=== PATIENT | female | born 1990 | race Caucasian/White ===

== ENCOUNTER 2016-09-25 14:00 | Emergency (ER) | payer SELFPAY ==
[2016-09-25 16:22] VITALS: BP 142/68; PULSE 78; TEMP 98.4; BMI 34.1
--- NOTE | 2016-09-25 16:30 | EDPRACDOC ---
- General Information Stated Complaint: COUGH, TOOTHACHE Time Seen by Provider: 09/25/16 16:23 Information Source: Patient Mode Of Arrival: Car Home Medications: Home Medications Insulin NPH (Isophane, Human) [Humulin N, Novolin N] 5 units SQ DAILY@1700 #1 pen 02/08/14 Insulin NPH (Isophane, Human) [Humulin N, Novolin N] 12 units SQ DAILY@0700 #1 pen 02/08/14 Insulin, Regular [Humulin R] 5 units SQ 1700 #1 vial 02/08/14 Insulin, Regular [Humulin R] 6 units SQ 0700 #1 vial 02/08/14 Hydrocodone/Acetaminophen [Vicodin 5-300 mg Tablet] 1 - 2 tabs PO Q6H PRN #10 tablet 03/18/14 Penicillin V Potassium 500 mg PO QID #40 tablet 03/18/14 Ciprofloxacin HCl [Cipro] 500 mg PO BID #20 tab 11/19/15 Amoxicillin 500 mg PO BID #20 capsule 09/25/16 Oxycodone Immediate Release [Oxycodone Immediate Release (OxyIR)] 5 mg PO Q6H PRN #15 tab 09/25/16 Prednisone [Sterapred Ds] 10 mg PO DIR #21 pack 09/25/16 Allergies/Adverse Reactions: Allergies Allergy/AdvReac Type Severity Reaction Status Date / Time No Known Allergies Allergy Verified 11/19/15 09:08 - History of Present Illness Symptoms Started: 3 DAYS HPI: PT C/O COUGH NAD LEFT UPPER TOOTHACHE FOR 3 DAYS. SPUTUM BROWN Symptoms: Reports: Cough, Other (TOOTHACHE LEFT UPPER) Recent Medications: Reports: None Relevant History Of: Reports: None Shortness of Breath: None Cough Frequency: Intermittent Cough Description: Reports: Productive, Congested Rhinorrhea: Reports: Clear Ear Symptoms: Reports: None Associated Signs and Symptoms: Reports: Cough, Other (TOOTHACHE) ED Past Medical History - History Reviewed Yes Nurses notes reviewed and agree except as marked Travel Outside of [place] in the Last 3 Months?: No - Patient Medical History Systemic History: Reports: Diabetes (GESTATIONAL). Denies: Cancer - Family Medical History Reports: Hypertension (Paternal & Maternal), Diabetes (Paternal & Maternal), Cancer (Paternal & Maternal), Stroke (Paternal & Maternal), Cardiac Disorders ( Paternal & Maternal) - Social Medical History Smoking Status: Heavy tobacco smoker (5 or more cigarettes/day or daily pipe/ cigar) ETOH: None Substance Abuse: None Lives With: Other Lives In: Home EDM Review of Systems - Review of Systems ROS Negative Except as Marked: Yes All systems reviewed and were negative except as marked Constitutional: No Symptoms Reported. negative: Fever, Chills, Weakness, Fatigue, Loss of Appetite Eyes: No Symptoms Reported. negative: Redness, Blurred Vision, Double Vision, Discharge, Pain, Light Sensitive, Photophobia Ears: No Symptoms Reported. negative: Pain, Hearing Loss, Drainage, Ear Pulling Throat: No Symptoms Reported. negative: Pain, Swelling Nose: No Symptoms Reported. negative: Congestion, Bleeding, Discharge, Injection, Swelling, Deformity, Ecchymosis, Tender, Abrasion, Laceration Mouth: Tooth Pain. negative: Pain, Drooling Respiratory: Cough, Sputum (BROWN). negative: Barky Cough, Brassy Cough, Hemoptysis, Shortness of Breath, Wheezing Cardiovascular: No Symptoms Reported. negative: Chest Pain, Palpitations, Syncope, Edema, Orthopnea, PND, Skin Mottling, Cyanosis Gastrointestinal: No Symptoms Reported. negative: Pain, Constipation, Nausea, Vomiting, Diarrhea, Melena, Formula Intolerance Genitourinary: No Symptoms Reported. negative: Dysuria, Hematuria, Frequency, Discharge, Bleeding, Testicular Pain, Neurological: No Symptoms Reported. negative: Headache, Dizziness, Seizure, Numbness, Weakness, Speech Difficulty, Gait Difficulty Musculoskeletal: No Symptoms Reported. negative: Neck, Chestwall, Ribs, Back, Shoulder, Arm, Elbow, Forearm, Wrist, Hand, Pelvis, Hip, Femur, Knee, Leg, Ankle , Foot Integumentary: No Symptoms Reported. negative: Itching, Rash, Bruising, Wound Allergic/Immunologic: No Symptoms Reported. negative: Hives, Itching Hematologic: No Symptoms Reported. negative: Lymphadenopathy, Easy Bruising, Easy Bleeding Endocrine: No Symptoms Reported. negative: Weight Gain, Weight Loss Psychiatric: No Symptoms Reported. negative: Anxiety, Depression, Hallucinations, Insomnia, Suicidal - Physical Exam Constitutional: No apparent distress, Alert (Awake) Oriented to: Time, Person, Place Last recorded Vital Signs: Last Vital Signs Temp 98.4 F 09/25/16 16:19 Pulse 78 09/25/16 16:19 Resp 20 09/25/16 16:19 BP 142/68 09/25/16 16:19 Pulse Ox 98 09/25/16 16:19 Oxygen Pulse Oxygen Saturation 98 O2 Device Oxygen Flow Rate Fraction of Inspired Oxygen ( FIO2) - HEENT Head: Normal ( normocephalic) Eye Exam: Normal (PERRL, EOMI, Sclera white) Oropharynx: Normal (Pharynx:Moist without exudate,Gums-no swelling) Tympanic Membrane: Normal ENT EAC: Normal TMJ: Normal Nose: No Symptoms Reported (septum midline) Neck: Normal (FROM, trachea at midline) - Respiratory/Cardiovascular Respiratory: Wheezes (MILD LEFT) Cardiovascular: Normal (RRR without murmur, gallop or rub) - GI Auscultation: Normal (NABS) Palpation: Normal (Soft,No rebound or guarding, non distended) Tenderness: Non tender Love's Sign: Negative - Musculoskeletal Back: Normal (Non-Tender) Extremities: Normal (Normal tone, Pulses 2+ No cyanosis or edema, FROM) - Integumentary Skin: Normal, Warm, Dry Lymphatics: Normal (no adenopathy) - Neurologic Memory Impaired: Normal Motor Function: Normal (Normal tone, Pulses 2+ No cyanosis or edema, FROM) Cranial Nerve: Normal (CN II-X11 intact sensation, strength 5/5) Cerebellar: Normal Mood Description: Normal Perception: Normal - Differential Diagnosis Bronchitis, Pneumonia, Other (DENTAL ABSCESS) Decision Time to Discharge: 16:32 - Departure Disposition: Home Condition: Stable Final Diagnosis: Bronchitis, Dental abscess (peridontal) Instructions: Acute Bronchitis (ED), Dental Abscess (ED) Education/Counseling Given To: Patient Education/Counseling Given Regarding: Diagnosis, Treatment, Prognosis, Follow Up Referrals: None,No Provider [Primary Care Provider] - One Week Prescriptions: Amoxicillin 500 mg PO BID #20 capsule Oxycodone Immediate Release [Oxycodone Immediate Release (OxyIR)] 5 mg PO Q6H PRN #15 tab PRN Reason: Pain Prednisone [Sterapred Ds] 10 mg PO DIR #21 pack Additional Instructions: RETURN FOR WORSE OR DIFFERENT SYMPTOMS.
== END 2016-09-25 16:41 | disposition home or self-care (01) ==
LOC: EDMC 14:00
DX: J20.9 Acute bronchitis, unspecified (principal); K04.7 Periapical abscess without sinus
CPT/HCPCS: 99282